=== PATIENT | male | born 1970 | race Caucasian/White ===

== ENCOUNTER 2018-09-21 23:03 | Emergency (ER) | payer OTHER ==
[~2018-09-21] VITALS: Ht 182.9 cm; Wt 113.6 kg
[2018-09-22] MEDS ORDERED: LIDOCAINE 1% MDV 20ML VIAL IM ONE (00:15)
[2018-09-22] MEDS ORDERED: ADACEL/BOOSTRIX VACCINE (DIPHTH/PERTUSS/ACELL/TETANUS)0.5ML SYR (90715) IM ONE (00:15)
[2018-09-22] MEDS ORDERED: NEOSPORIN OINT 0.9 GM PKT (FLOOR STOCK) As Ordered ONE (00:42)
[2018-09-22 00:49] VITALS: BP 124/74
== END 2018-09-22 00:49 | disposition home or self-care (01) ==
LOC: M ED 23:03
DX: S61.213A Laceration without foreign body of left middle finger without damage to nail, initial encounter (principal); W26.0XXA Contact with knife, initial encounter; Y92.099 Unspecified place in other non-institutional residence as the place of occurrence of the external cause; Y93.89 Activity, other specified; Y99.9 Unspecified external cause status; G47.30 Sleep apnea, unspecified